=== PATIENT | female | born 1960 | race American Indian/Alaskan Native ===

== ENCOUNTER 2020-05-04 07:21 | Emergency (ER) | payer OTHER ==
[2020-05-04 07:30] VITALS: BP 129/81
[2020-05-04] MEDS ORDERED: diphenhydrAMINE 25 MG CAP PO ONE (10:09)
[2020-05-04] MEDS ORDERED: FAMOTIDINE 20 MG TAB PO ONE (10:09)
[2020-05-04] MEDS ORDERED: dexAMETHasone 20 MG/5 ML VIAL IM ONE (10:09)
--- NOTE | 2020-05-04 10:37 | Emergency Department Report ---
- General Chief complaint: Skin Rash Stated complaint: itching Time Seen by Provider: 05/04/20 09:49 Source: patient Mode of arrival: Ambulatory Limitations: No Limitations - History of Present Illness Initial comments: Patient is a 60-year-old female presents emergency room with complaints of a diffuse rash that began yesterday. She states that she was at her sister's house and began to feel itching all over. She states that her sister then informed her that she had poison therese and she may have gotten poison therese from her. Patient states that her hands and legs have swollen secondary to the rash. She states that she has been scratching constantly. She denies any known allergies at all. She denies any fever, nausea, vomiting, diarrhea, facial swelling, difficulty swallowing, shortness of breath, sensation of throat closing. She has a past medical history of hypertension. No allergies to medications. - Related Data Previous Rx's Medication Instructions Recorded Last Taken Type Hydrocortisone 0.5% (Nf) 1 applicatio TP TID #1 tube 05/04/20 Unknown Rx [Hydrocortisone 0.5% OINT] Prednisone [predniSONE 10 mg 10 mg PO .TAPER #1 tab.ds.pk 05/04/20 Unknown Rx (6-Day Pack, 21 Tabs)] diphenhydrAMINE [Benadryl CAP] 25 mg PO Q6HR PRN #10 capsule 05/04/20 Unknown Rx Allergies Allergy/AdvReac Type Severity Reaction Status Date / Time No Known Allergies Allergy Verified 05/04/20 07:24 Abscess Boil HPI - HPI Chief Complaint: Skin Rash Stated Complaint: itching Time Seen by Provider: 05/04/20 09:49 Home Medications: Previous Rx's Medication Instructions Recorded Last Taken Type Hydrocortisone 0.5% (Nf) 1 applicatio TP TID #1 tube 05/04/20 Unknown Rx [Hydrocortisone 0.5% OINT] Prednisone [predniSONE 10 mg 10 mg PO .TAPER #1 tab.ds.pk 05/04/20 Unknown Rx (6-Day Pack, 21 Tabs)] diphenhydrAMINE [Benadryl CAP] 25 mg PO Q6HR PRN #10 capsule 05/04/20 Unknown Rx Allergies/Adverse Reactions: Allergies Allergy/AdvReac Type Severity Reaction Status Date / Time No Known Allergies Allergy Verified 05/04/20 07:24 ED Review of Systems ROS: Stated complaint: itching Other details as noted in HPI Comment: All other systems reviewed and negative ED Past Medical Hx - Past Medical History Previous Medical History?: No Hx Hypertension: Yes - Surgical History Past Surgical History?: No - Social History Smoking Status: Current Some Day Smoker - Medications Home Medications: Home Medications Medication Instructions Recorded Confirmed Last Taken Type Hydrocortisone 0.5% (Nf) 1 applicatio TP TID #1 tube 05/04/20 Unknown Rx [Hydrocortisone 0.5% OINT] Prednisone [predniSONE 10 mg 10 mg PO .TAPER #1 tab.ds.pk 05/04/20 Unknown Rx (6-Day Pack, 21 Tabs)] diphenhydrAMINE [Benadryl CAP] 25 mg PO Q6HR PRN #10 capsule 05/04/20 Unknown Rx ED Physical Exam - General Limitations: No Limitations General appearance: alert, in no apparent distress - Head Head exam: Present: atraumatic, normocephalic - Eye Eye exam: Present: normal appearance - ENT ENT exam: Present: mucous membranes moist, other (no angioedema) - Respiratory Respiratory exam: Absent: respiratory distress, stridor, accessory muscle use - Neurological Exam Neurological exam: Present: alert, oriented X3 - Psychiatric Psychiatric exam: Present: normal affect, normal mood - Skin Skin exam: Present: warm, dry, other (diffuse erythema, papules, macules, and small blisters, there is moderate edema present to the dorsal hands, no flu ctuance, no pustules, no signs of infection, no necrosis, no skin denuding) ED Course Vital Signs 05/04/20 07:24 Temperature 98 F Pulse Rate 84 Respiratory 16 Rate Blood Pressure 129/81 O2 Sat by Pulse 96 Oximetry ED Medical Decision Making - Medical Decision Making Patient is a 60-year-old female presents emergency room with complaints of a diffuse rash that began yesterday. She states that she was at her sister's house and began to feel itching all over. She states that her sister then informed her that she had poison therese and she may have gotten poison therese from her. Patient states that her hands and legs have swollen secondary to the rash. She states that she has been scratching constantly. She denies any known allergies at all. She denies any fever, nausea, vomiting, diarrhea, facial swelling, difficulty swallowing, shortness of breath, sensation of throat cl osing. She has a past medical history of hypertension. No allergies to medications. Vitals are normal. On exam:diffuse erythema, papules, macules, and small blisters, there is moderate edema present to the dorsal hands, no fluctuance, no pustules, no signs of infection, no necrosis, no skin denuding. Examination appears consistent with significant poison therese dermatitis which is causing a localized allergic reaction with skin edema. Patient given Decadron IM, Benadryl, Pepcid and symptoms improved. Patient will be treated for poison therese dermatitis to prevent significant secondary bacterial infection. Patient given prescription for prednisone, Benadryl, hydrocortisone ointment. Advised patient Please use medication as prescribed. May also use calamine lotion. May use oatmeal bath. Please shower/bathe in cool water. Please avoid scratching as that can create an infection. Follow-up with a primary care doctor for reexamination. Return to emergency room for any new or worsening symptoms. Critical care attestation.: If time is entered above; I have spent that time in minutes in the direct care of this critically ill patient, excluding procedure time. ED Disposition Clinical Impression: Poison therese dermatitis Disposition: DC-01 TO HOME OR SELFCARE Is pt being admited?: No Does the pt Need Aspirin: No Condition: Stable Instructions: Poison Therese (ED) Additional Instructions: Please use medication as prescribed. May also use calamine lotion. May use oatmeal bath. Please shower/bathe in cool water. Please avoid scratching as that can create an infection. Follow-up with a primary care doctor for reexamination. Return to emergency room for any new or worsening symptoms. Prescriptions: diphenhydrAMINE [Benadryl CAP] 25 mg PO Q6HR PRN #10 capsule PRN Reason: itching Hydrocortisone 0.5% (Nf) [Hydrocortisone 0.5% OINT] 1 applicatio TP TID #1 tube Prednisone [predniSONE 10 mg (6-Day Pack, 21 Tabs)] 10 mg PO .TAPER #1 tab.ds.pk Referrals: TALISHA SCHULER MD [Primary Care Provider] - 3-5 Days Time of Disposition: 10:37 Print Language: GERMAN
== END 2020-05-04 10:50 | disposition home or self-care (01) ==
LOC: EDBD → ED 07:21
DX: L23.7 Allergic contact dermatitis due to plants, except food (principal); I10 Essential (primary) hypertension; F17.200 Nicotine dependence, unspecified, uncomplicated; Z79.899 Other long term (current) drug therapy
CPT/HCPCS: 96372; 99282; J1100